=== PATIENT | male | born 1980 | race African-American/Black ===

== ENCOUNTER 2019-05-23 10:14 | Outpatient (CLI) | payer OTHER | END 2019-05-23 20:13 | disposition home or self-care (01) | LOC: RAD 10:14 | DX: J20.8 Acute bronchitis due to other specified organisms (principal) ==

== ENCOUNTER 2021-04-09 10:34 | Outpatient (CLI) | payer OTHER | END 2021-04-09 19:19 | disposition home or self-care (01) | LOC: RAD 10:34 | PROVIDERS: ATTEND Nurse Practitioner Primary Care | DX: R05.1 Acute cough (principal) ==